=== PATIENT | female | born 1995 | race African-American/Black ===

== ENCOUNTER 2022-04-21 15:06 | Emergency (ER) | payer OTHER ==
[~2022-04-21] VITALS: Ht 157.5 cm; Wt 103.0 kg
[2022-04-21 15:16] VITALS: BP 128/77
--- NOTE | 2022-04-21 15:30 | NUR ---
27YO FEMALE PT IN FOR TEST. REPORTS + AT HOME TEST WITH "VERY FAINT LINE". NOTES LL ABDOMINAL PAIN AND MILD VAGINAL BLEEDING XTODAY. ABDOMEN NON DISTENDED OR TENDER. STATES NAUSEA AT BEDTIME, DENIES AT THIS TIME. DENIES V/D, CHEST PAIN , FEVER , CHILLS, OR SOB. PT AAOX4, NO VISIBLE DISTRESS. RESPIRATIONS EVEN AND UNLABORED.HOB POSITIONED PER COMFORT. HX:DENIES NKA
[2022-04-21] MEDS ORDERED: NITR100C7 PO (17:11)
[2022-04-21 17:20] VITALS: BP 123/86
--- NOTE | 2022-04-21 17:20 | NUR ---
The patient's care was reviewed and supervised by Neal Meléndez RN.
--- NOTE | 2022-04-21 17:20 | NUR ---
Patient discharged with v/s stable. Written and verbal after care instructions FOR UTI given and explained. Patient alert, oriented and verbalized understanding of instructions. Ambulatory with steady gait. All questions addressed prior to discharge. ID band removed. Patient advised to follow up with PMD. Rx of MACROBID 100MG CAP given. Opportunity to ask questions provided and answered.
== END 2022-04-21 17:20 | disposition home or self-care (01) ==
LOC: MED 15:06
DX: N39.0 Urinary tract infection, site not specified (principal); Z79.899 Other long term (current) drug therapy
CPT/HCPCS: 81002; 81025; 87491; 99284

== ENCOUNTER 2022-12-11 19:49 | Emergency (ER) | payer OTHER ==
[~2022-12-11] VITALS: Ht 157.5 cm; Wt 90.7 kg
[~2022-12-11 19:49] MED LIST: NITR100C7 PO
[2022-12-11 20:30] VITALS: BP 108/71
--- NOTE | 2022-12-11 21:22 | NUR ---
PT TO BED#4
[2022-12-11 22:02] LABS: BILIRUBIN,URINE NEGATIVE (NEGATIVE); BLOOD, URINE NEGATIVE (NEGATIVE); COLOR,URINE YELLOW (YELLOW); LEUKOCYTE ESTERASE ,URINE 1+ (NEGATIVE); NITRITE, URINE NEGATIVE (NEGATIVE); UGLUCOSE NEGATIVE (NEGATIVE)
[2022-12-11 22:04] LABS: APPEARANCE,URINE SLIGHTLY HAZY (CLEAR)
[2022-12-11 22:09] LABS: BASOPHILS # (AUTO) 0.1 K/uL (0.00-0.22); BASOPHILS % (AUTO) 0.5 % (0.0-2.0); EOSINOPHILS # (AUTO) 0.1 K/uL (0-0.4); EOSINOPHILS % (AUTO) 1.1 % (0.0-4.0); HEMOGLOBIN 11.3 g/dL (12.0-16.0); LYMPHOCYTES # (AUTO) 3.1 K/uL (2.5-16.5); LYMPHOCYTES % (AUTO) 23.5 % (20.5-51.1); MEAN CORPUSCULAR HEMOGLOBIN 27 pg (27-31); MEAN CORPUSCULAR HGB CONC 33 g/dL (33-37); MEAN CORPUSCULAR VOLUME 81.8 fL (80-94); MONOCYTES # (AUTO) 0.6 K/uL (0.8-1.0); NEUTROPHILS # (AUTO) 9.1 K/uL (1.8-7.7); NEUTROPHILS % (AUTO) 69.9 % (42.2-75.2); PLATELET COUNT (AUTO) 221 K/uL (140-450); RED BLOOD CELL COUNT(AUTO) 4.16 MIL/uL (4.20-5.40); RED CELL DISTRIBUTION WIDTH 14.9 % (11.6-13.7); WHITE BLOOD COUNT (AUTO) 13.1 K/uL (4.8-10.8)
--- NOTE | 2022-12-11 22:10 | NUR ---
Dr. Sky examining patient.
[2022-12-11 22:17] LABS: RBC,URINE 0 /HPF (0-5)
[2022-12-11 22:20] LABS: ALBUMIN 2.5 g/dL (3.4-5.0); CARBON DIOXIDE 25.4 mmol/L (21-32); CREATININE 0.8 mg/dL (0.6-1.3); POTASSIUM 3.4 mmol/L (3.5-5.1); TOTAL BILIRUBIN 0.1 mg/dL (0.0-1.0)
--- NOTE | 2022-12-11 23:17 | NUR ---
Vaginal wet mount collected by MD Sky and sent to lab.
[2022-12-11] MEDS ORDERED: MICO100S9 VG (23:53)
[2022-12-12 00:25] VITALS: BP 115/56
--- NOTE | 2022-12-12 00:25 | NUR ---
Patient discharged with v/s stable. Written and verbal after care instructions given and explained. Patient alert, oriented and verbalized understanding of instructions. Ambulatory with steady gait. All questions addressed prior to discharge. ID band removed. Patient advised to follow up with PMD. Rx of Miconazol sent to preferred pharmacy. Patient educated on indication of medication including possible reaction and side effects. Opportunity to ask questions provided and answered.
== END 2022-12-12 00:25 | disposition home or self-care (01) ==
LOC: MED 19:49
DX: O98.812 Other maternal infectious and parasitic diseases complicating pregnancy, second trimester (principal); Z3A.24 24 weeks gestation of pregnancy; Z79.899 Other long term (current) drug therapy
CPT/HCPCS: 36415; 76805; 80053; 81001; 81025; 84702; 85025; 86886; 86900; 86901; 87086; 87210; 87491; 99284; Q0092